=== PATIENT | male | born 1950 | race Caucasian/White ===

== ENCOUNTER 2018-09-08 09:19 | Observation (INO) | payer MEDICARE ==
[2018-09-08] MEDS ORDERED: Labetalol IV* 5 MG/ML 20 ML VIAL IV PUSH ONE (09:51)
[2018-09-08] MEDS ORDERED: Acetaminophen TAB* 325 MG PO ONE (09:51)
--- NOTE | 2018-09-08 09:51 | ED ---
Headache - HPI Summary HPI Summary: A 67 y/o male presents to [facility] with a chief complaint of headache since 16:00 09/07/18. The patient reports he was driving back home for three hours returning from [place] when he experienced headache followed by blurry vision. He rates his pain as a 3/10. He also reports jaw tightness on both sides with some SOB due to anxiety and upper back/shoulder blade pain lasting thirty minutes. The patient claims that his back and jaw pain along with his blurry vision have resolved. The patient denies any CP, arm pain, nausea or diaphoresis. The patient reports that he has a Hx of HTN and that his blood pressure is usually is 126/107 but in the ED his BP is 174/102. The patient's also reports that in July the patient had a syncopal episode in which his BP was 154/95. He reports that he took his BP medication TECHNICAL INTERN. The patient also has a Hx of DM, HLD and had a nerve palsy in his left eye. He reports a SHx of neck surgery in 1991. He denies having a stress test done, US of the heart done or a Hx of SD. He denies smoking, drug or EtOH use. - History Of Current Complaint Chief Complaint: EDHeadache Stated Complaint: BLURRED VISION, HEADACHE Time Seen by Provider: 09/08/18 09:33 Hx Obtained From: Patient Onset/Duration: Sudden Onset, Started hours ago, Still Present Initially Headache Was: Moderate Currently Pain Is: Current Pain Scale(0-10)= - 3, Moderate Timing: Constant, Hours Character: Unable To Describe Aggravating Factor: Nothing Allevating Factors: Nothing Associated Signs And Symptoms: Negative - nausea, diaphoresis, CP, arm pain, Visual Changes - blurry, Other (Noted In Comments) - upper back pain, SOB due to anxiety - Allergies/Home Medications Allergies/Adverse Reactions: Allergies Allergy/AdvReac Type Severity Reaction Status Date / Time Sulfa (Sulfonamide Allergy Nausea Verified 09/08/18 09:26 Antibiotics) PMH/Surg Hx/FS Hx/Imm Hx Endocrine/Hematology History: Reports: Hx Diabetes Denies: Hx Anticoagulant Therapy Cardiovascular History: Reports: Hx Hypercholesterolemia, Hx Hypertension Denies: Hx Myocardial Infarction Infectious Disease History: No Infectious Disease History: Denies: Traveled Outside the [place] in Last 30 Days - Family History Known Family History: Positive: Cardiac Disease, Hypertension, Diabetes - Social History Lives: With Family Alcohol Use: None Substance Use Type: Reports: None Hx Tobacco Use: No Smoking Status (MU): Never Smoked Tobacco Review of Systems Negative: Fever, Skin Diaphoresis Positive: Blurred Vision - TECHNICAL INTERN ENT: Other - positive: jaw pain on both sides TECHNICAL INTERN Negative: Chest Pain Positive: Shortness Of Breath - due to anxiety, TECHNICAL INTERN Negative: Nausea Musculoskeletal: Negative - arm pain Positive: Myalgia - upper back pain, shoulder blade pain Positive: Headache Positive: Anxious All Other Systems Reviewed And Are Negative: Yes Physical Exam - Summary Physical Exam Summary: GENERAL: Patient is a well-developed and nourished M who is lying comfortable in the stretcher. Patient is not in any acute respiratory distress. HEAD AND FACE: Normocephalic EYES: PERRLA, EOMI x 2. EARS: Hearing grossly intact. MOUTH: Oropharynx within normal limits. NECK: Supple, trachea is midline, no adenopathy, no JVD, no carotid bruit. CHEST: Symmetric, no tenderness at palpation LUNGS: Clear to auscultation bilaterally. No wheezing or crackles. CVS: Regular rate and rhythm, S1 and S2 present, no murmurs or gallops appreciated. ABDOMEN: Soft, non-tender. Bowel sounds are normal. No abdominal abnormal pulsations. EXTREMITIES: Full ROM in all major joints, no edema, no cyanosis or clubbing. NEURO: Alert and oriented x 3. No acute neurological deficits. Speech is normal and follows commands. SKIN: Dry and warm Neuro exam extended: Cranial nerves II-XII grossly intact, no dysmetria finger to nose, nml heel to wills GCS: 15 Triage Information Reviewed: Yes Vital Signs On Initial Exam: Initial Vitals Temp Pulse Resp BP Pulse Ox 98.0 F 95 20 174/102 98 09/08/18 09:22 09/08/18 09:22 09/08/18 09:22 09/08/18 09:22 09/08/18 09:22 Vital Signs Reviewed: Yes Diagnostics - Vital Signs Vital Signs Temp Pulse Resp BP Pulse Ox 09/08/18 09:22 98.0 F 95 20 174/102 98 - Laboratory Result Diagrams: 09/08/18 09:56 09/10/18 05:35 Lab Statement: Any lab studies that have been ordered have been reviewed, and results considered in the medical decision making process. - Radiology CXR Radiology Interpretation Completed By: Radiologist Summary of Radiographic Findings: NO ACTIVE CARDIOPULMONARY DISEASE. ED physician has reviewed this imaging report. - CT Brain CT Interpretation Completed By: Radiologist Summary of CT Findings: NO ACUTE INTRACRANIAL PATHOLOGY. CHRONIC SMALL VESSEL ISCHEMIC CHANGE. ED physician has reviewed this imaging report. - EKG 10:16 Cardiac Rate: NL - 89 bpm EKG Rhythm: Sinus Rhythm Summary of EKG Findings: NSR at 89 bpm, nml axis Re-Evaluation - Re-Evaluation First Eval Re-Evaluation Time: 10:50 Change: Improved Comment: Headache is improved but still present. Headache Course/Dx - Course Course Of Treatment: A 67 y/o male presents to [facility] with a chief complaint of headache since 16:00 09/07/18. Workup is remarkable with a normal physical exam. His EKG showed NSR at 89 bpm with nml axis. Brain CT impression: NO ACUTE INTRACRANIAL PATHOLOGY. CHRONIC SMALL VESSEL ISCHEMIC CHANGE. CXR impression: NO ACTIVE CARDIOPULMONARY DISEASE. In the ED course the patient was given Tylenol PO and Trandate IV. Lab results obtained. BUN high at 29. Creatinine high at 1.6. The patient will be admitted.Dx: atypical chest pain and headache. Case discussed with Dr. Thomas, hospitalist. I discussed results with patient. The patient agrees with this plan. - Diagnoses Provider Diagnoses: Atypical chest pain, Headache - Physician Notifications Discussed Care Of Patient With: Grady Thomas Time Discussed With Above Provider: 11:05 Instructed by Provider To: Admit As Inpatient Discharge - Sign-Out/Discharge Documenting (check all that apply): Patient Departure - Admit - Discharge Plan Condition: Stable Disposition: ADMITTED TO [facility] - Billing Disposition and Condition Condition: STABLE Disposition: Admitted to [facility] - Attestation Statements Document Initiated by Scribe: Yes Documenting Scribe: Charlie Mitchell Provider For Whom Carlibe is Documenting (Include Credential): Stevan Lake MD Scribe Attestation: Charlie Batista, scribed for Stevan Lake MD on 09/11/18 at 1038. Scribe Documentation Reviewed: Yes Provider Attestation: The documentation as recorded by the Charlie luu accurately reflects the service I personally performed and the decisions made by me, Shivani Lake MD Status of Scribe Document: Viewed
[2018-09-08 10:03] LABS: ABS Basophils 0.1 10^3/ul (0-0.2); ABS Eosinophils 0.1 10^3/ul (0-0.6); ABS Lymphocytes 0.7 10^3/ul (1.0-4.8); ABS Monocytes 0.6 10^3/ul (0-0.8); ABS Nucleated RBC 0 10^3/ul; Eosinophil % 1.8 %; Hematocrit 47 % (42-52); Lymphocyte % 12.7 %; Mean Corpuscular HGB Conc 34 g/dl (31-36); Mean Corpuscular Hemoglobin 31 pg (27-31); Mean Corpuscular Volume 90 fL (80-94); Nucleated Red Blood Cells % 0; Platelet Count 177 10^3/ul (150-450); Red Blood Count 5.24 10^6/ul (4.00-5.40); Red Cell Distribution Width 15 % (10.5-15); White Blood Count 5.5 10^3/ul (3.5-10.8)
[2018-09-08 10:10] LABS: Activated Partial Thrombo Time 31.6 seconds (26.0-36.3); INR 0.86 (0.77-1.02)
[2018-09-08] MEDS ORDERED: Metoprolol Tartrate TAB* 25 MG PO ONE (10:16)
[2018-09-08 10:25] LABS: Albumin 4.3 g/dL (3.2-5.2); Albumin/Globulin Ratio 1.5 (1-3); BUN/Creatinine Ratio 18.1 (8-20); Calcium 9.6 mg/dL (8.6-10.3); EGFR Non-African American 43.1 (>60); Globulin 2.8 g/dL (2-4); Magnesium 1.8 mg/dL (1.9-2.7); Total Bilirubin 0.4 mg/dL (0.2-1.0); Total Protein 7.1 g/dL (6.4-8.9)
[2018-09-08 10:28] LABS: Potassium 4.5 mmol/L (3.5-5.0)
[2018-09-08] MEDS ORDERED: Aspirin 81 mg CHEW TAB* 81 MG TAB.CHEW PO ONE (10:46)
[2018-09-08] MEDS ORDERED: Magnesium Sulfate 1 GM IV* 1 GM/100 ML BAG IV ONE (12:47)
--- NOTE | 2018-09-08 14:44 | ECHO ---
Patient: DANA FOWLER [facility] Rec#: [id number] : 1950 Date: 09/08/2018 Age: 67y Height: 163 cm / 64.2 in Weight: 81 kg / 178.5 lbs Sex: M BSA: 1.87 Room#: 438 Admit Date#: 09/08/2018 Type: Inpatient Referring: Grady Thomas Reading: Sabino Castrejon MD Library Sales Consultant: Charlotte Mendoza RDCS CC: Ruchi Sauer MD Transthoracic Echocardiogram Indication: CP//SOB BP: 146/95 HR: 91 Rhythm: NSR Findings History: DM,HLD,HTN. Technical Comments: The study quality is good. Completed at 1405. Left Ventricle: The left ventricular chamber size is normal. Global left ventricular wall motion and contractility are within normal limits. There is normal left ventricular systolic function. The estimated ejection fraction is 55-60%. The assessment of diastolic function is non-diagnostic. Left Atrium: The left atrial chamber size is normal. Right Ventricle: The right ventricular cavity size is normal. The right ventricular global systolic function is normal. Right Atrium: The right atrial cavity size is normal. Aortic Valve: The aortic valve structure is not well visualized. There is no evidence of aortic regurgitation. There is no evidence of aortic stenosis. Mitral Valve: The mitral valve leaflets are mildly thickened. There is no evidence of mitral regurgitation. Tricuspid Valve: The tricuspid valve leaflets are normal. There is no evidence of tricuspid valve regurgitation. Pulmonic Valve: The pulmonic valve appears normal. There is a trace pulmonic regurgitation. There is no pulmonic stenosis. Pericardium: There is no significant pericardial effusion. A pericardial fat pad is visualized. Aorta: There is no dilatation of the ascending aorta. There is no dilatation of the aortic arch. There is no dilation of the aortic root. Pulmonary Artery: The main pulmonary artery is not well visualized. Venous: The venous system is not well visualized. Conclusions There is normal left ventricular systolic function. The estimated ejection fraction is 55-60%. Global left ventricular wall motion and contractility are within normal limits. Normal cardiac chamber sizes. Functionally benign heart valves. There is no prior echocardiogram available to compare with at this time. Measurements Name Value Normal Range RVIDd (AP) 2D 3 cm (0.9 - 2.6) RVDdMajor (2D) 2.7 cm (2.2 - 4.4) RAd ISD 4CH 4.5 cm (3.4 - 4.9) RA (A4C)W 2.9 cm (2.9 - 4.6) IVSd (2D) 0.7 cm (0.6 - 1) LVPWd (2D) 0.8 cm (0.6 - 1) LVIDd (2D) 4.1 cm (3.6 - 5.4) LVIDs (2D) 3.1 cm - LV FS (2D) 24 % (25 - 45) Aortic Annulus 1.9 cm (1.4 - 2.6) Ao root diameter (2D) 3.1 cm (2.1 - 3.5) Ascending Ao 3.2 cm (2.1 - 3.4) Aortic arch 2.8 cm (1.8 - 3.4) Descending Ao 0.4 cm - LA dimension (AP) 2D 3.1 cm (2.3 - 3.8) LAd ISD 4CH 4 cm (2.9 - 5.3) LA ISD 4CH W 3.5 cm (2.5 - 4.5) Name Value Normal Range LA ESV SP 4CH (A/L) 15 ml - LA ESV SP 2CH (A/L) 12 ml - LA ESV BP (A/L) index 14 ml/m2 - Name Value Normal Range MV E-wave Vmax 0.6 m/sec - MV deceleration time 176 msec - MV A-wave Vmax 0.7 m/sec - MV E:A ratio 0.9 ratio - LV septal e' Vmax 0.08 m/sec - LV lateral e' Vmax 0.08 m/sec - LV E:e' septal ratio 7.5 ratio - LV E:e' lateral ratio 7.5 ratio - Name Value Normal Range AV Vmax 1.1 m/sec - AV VTI 21.3 cm - AV peak gradient 5 mmHg - AV mean gradient 2 mmHg - LVOT Vmax 0.9 m/sec - LVOT VTI 17 cm - LVOT peak gradient 3 mmHg - LVOT mean gradient 1 mmHg - Name Value Normal Range PV Vmax 0.6 m/sec - PV peak gradient 2 mmHg -
--- NOTE | 2018-09-08 17:14 | HP ---
HISTORY AND PHYSICAL: DATE OF ADMISSION: 09/08/18 ADMITTING PHYSICIAN: Grady Thomas MD PRIMARY CARE PHYSICIAN: Dr. Sauer. OUTPATIENT GROUND MIXER: Efren Gambino. CHIEF COMPLAINT: Pressure between bilateral shoulder blades, blurry vision, jaw tightness. HISTORY OF PRESENT ILLNESS: Pete Rehman is a 67-year-old male with a past medical history of hypertension; bvb-bpdewng-kbstdfdsm diabetes mellitus; hyperlipidemia; rheumatoid arthritis, on methotrexate and Plaquenil; gout; obstructive sleep apnea; chronic kidney disease stage 3; who day prior to admission drove to visit family in [place]. He noticed around 1 to 2 p.m. that his bilateral jaws felt tight with 7/10 intensity lasting for about 4 to 5 minutes. It has happened once before then resolved. This was before eating lunch. He had also noted some slight blurry vision on the drive that morning. On the way back home, he noticed worse blurry vision and had to harness puller and let his drive the rest of the way. He said though vision then certainly cleared once he got home. He woke up 4:30 a.m. with "odd" feeling with pressure between his bilateral shoulder blades, 7/10 intensity. He was able to go back to sleep and the pressure had not returned upon waking. He complains also of lower neck pain that radiates up to his occiput and upper back which is an intermittent issue for him. He does have history also in 2011 of third nerve palsy and at that time had severe double or blurry vision and was started on Plavix 75 mg in addition to aspirin 81 mg by his previous primary care provider, Dr. Mahoney. He denies any chest pain. He does get shortness of breath going upstairs on occasion and also sleeps at a slight incline, he says because of shortness of breath as well. He does not really exercise. Denies ever having an electrocardiogram. He is referred to hospitalist service for ACS rule out. His initial troponin was negative. EKG without significant changes except some flattening of T waves in V1 and poor R wave progression. He additionally because of the headache had a CT of the head, which showed chronic small vessel ischemic changes. Chest x-ray which showed no acute process. His last A1c was 6.0%, on 06/16/18. 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 MEDICATIONS: Include: 1. Aspirin 81. 2. Plavix 75. 3. Folic acid 1 mg. 4. Lispro 10 mg daily. 5. Omeprazole 20 mg daily. 6. Methotrexate 7.5 mg weekly, last had day prior to admission. 7. Metformin 500 mg p.o. daily. 8. Simvastatin 20 mg p.o. 1700. 9. Plaquenil 400 mg p.o. daily. ALLERGIES: SULFA causes nausea. FAMILY HISTORY: His mother had mitral valve disease and a CVA, at age 87. Dad had stomach cancer, at age 64. Both maternal and paternal grandfathers had bad diabetes. SOCIAL HISTORY: He is a never smoker. Former heavy drinker back in the 1970s when he quit, only occasionally now. No drug use. 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 His medical surrogate is his , Leydi Rehman. Desires to be full code. REVIEW OF SYSTEMS: Complete 14-point review of systems negative except as per HPI. PHYSICAL EXAMINATION GENERAL APPEARANCE: No acute distress, sitting in hospital bed. VITAL SIGNS: Temperature 98.6, heart rate 73, respiratory rate 21, sating 96% on room air, blood pressure 146/95. HEENT: Normocephalic and atraumatic. Pupils are equal, round, and reactive to light. Extraocular motions intact. No scleral icterus. NECK: Supple, no cervical lymphadenopathy. LUNGS: Clear to auscultation bilaterally with no wheezing, rales, or rhonchi. CARDIOVASCULAR: Regular rate and rhythm. No murmurs, rubs, or gallops. ABDOMEN: Soft, nontender, nondistended. EXTREMITIES: Warm, well perfused. No peripheral edema. NEUROLOGIC: Cranial nerves II through XII intact. Stabilizing Machine Operator strength 5/5. Hip flexion, leg extension 5/5 bilaterally. No blurry vision currently. DIAGNOSTIC STUDIES/LAB DATA: White count 5.5, hemoglobin 16.0, hematocrit 47, platelets 177. INR 0.86. Sodium 137, potassium 4.5, chloride 105, carbon dioxide 26, BUN 29, creatinine 1.60, glucose 100, magnesium 1.8. AST 23, ALT 26 , alk phos 50. Troponin 0.00, BNP 13. Imaging: CT head with the chronic small vessel ischemic changes. Chest x-ray, no acute process. EKG with normal sinus rhythm, flat T wave in V1, poor R wave progression, and some left axis deviation. ASSESSMENT AND PLAN: Pete Rehman is a 67-year-old male with a past medical history of hypertension, yre-cprwear-fycogboob diabetes, hyperlipidemia, rheumatoid arthritis, gout, obstructive sleep apnea, never smoker, presenting with pressure between his bilateral shoulder blades that is resolved, jaw tightness, blurry vision, and some chronic dyspnea on exertion, who is referred to hospitalist service for acute coronary syndrome rule out. His troponin was negative. EKG, no ST elevations or depressions. Trend troponins every 4 hours. Repeat EKG at 4 p.m. I am noting an echocardiogram, he has never had that before. Has possible TIA like symptoms in the past and blurry vision could potentially be related to that. Given his quick resolution, he is asymptomatic and may continue statin. He is already on aspirin and Plavix. We will determine clinical course and may consider nuclear stress test either tomorrow as an outpatient, so I gave him a heart healthy diet. Continue his Plaquenil with lisinopril, omeprazole. Again, he is a full code. Medical surrogate is his , Leydi Rehman. [id number]/[facility] #: [id number] IRON
[2018-09-08] MEDS: Clopidogrel TAB* 75 MG PO SCH (17:18)
[2018-09-08] MEDS: CMCS:Pantoprazole TAB (NF) 40 MG TAB PO SCH (17:18)
[2018-09-08] MEDS: Atorvastatin* 10 MG TAB PO SCH (17:18)
[2018-09-09 08:32] LABS: BUN/Creatinine Ratio 16.1 (8-20); Calcium 9.2 mg/dL (8.6-10.3); EGFR Non-African American 46.8 (>60); Magnesium 1.9 mg/dL (1.9-2.7); Potassium 4.4 mmol/L (3.5-5.0)
[2018-09-09] MEDS ORDERED: Regadenoson* 0.4 MG/5 ML SYRINGE ONE (09:32)
[2018-09-09] MEDS: Folic Acid TAB* 1 MG PO SCH (12:03)
[2018-09-09] MEDS: Lisinopril TAB* 10 MG PO SCH (12:03)
[2018-09-09] MEDS: metFORMIN* 500 MG TAB PO SCH (12:03)
[2018-09-09] MEDS: Aspirin EC TAB* 81 MG TAB.EC PO SCH (12:04)
[2018-09-09] MEDS: Hydroxychloroquine TAB* 200 MG PO SCH (12:04)
--- NOTE | 2018-09-09 15:19 | CONSULT ---
Consult Consult: NEUROLOGY CONSULTATION Patient seen and examined 09/09/2018 2.45pm CC:blurred vision HPI:This is a 67 yr old man with history of hypertension; fkl-fhuzzcb-ifwdutgkx diabetes mellitus; hyperlipidemia; rheumatoid arthritis, on methotrexate and Plaquenil; gout; obstructive sleep apnea; chronic kidney disease stage 3 presenting after a transient event of blurred vision. The patient was driving home from [place] with his when he noted bilateral jaw tightness that resolved after about 5 minutes. He then noted some blurred vision that persisted. He did not close one eye to test if this was from eye eye or both. He does not describe the change in vision as a curtain coming down, diplopia or an anopsia.He then let his drive the rest of the way. He also noted some posterior head/ neck pain 3/10 that he has occasionally experienced in the past. His vision cleared completely once he got home. He does have a history of a left 3rd nerve palsy that occured in 2011. He states that the workup was negative but was placed on ASA 81 and Plavix 75 daily after that event. He had a complete cardiac workup this admission that is thus far unrevealing. He denies any numbness, tingling, focal weakness, difficulty with speech, difficulty with balance or gait at the time of the event and now. Review of Systems: The patient's review of systems questionnaire was reviewed and there are no additional pertinent positives. 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 MEDICATIONS: Include: 1. Aspirin 81. 2. Plavix 75. 3. Folic acid 1 mg. 4. Lispro 10 mg daily. Allergies Sulfa (Sulfonamide Antibiotics) Allergy (Verified 09/08/18 09:26) Nausea FAMILY HISTORY: His mother had mitral valve disease and a CVA, at age 87. Dad had stomach cancer, at age 64. Both maternal and paternal grandfathers had bad diabetes. SOCIAL HISTORY: He is a never smoker. Former heavy drinker back in the 1970s when he quit, only occasionally now. No drug use. 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 His medical surrogate is his , Leydi Rehman. Desires to be full code. Vital Signs Temp 97.4 F 09/09/18 11:19 Pulse 81 12/28/18 11:19 Resp 16 09/09/18 11:19 BP 104/71 09/09/18 11:19 Pulse Ox 95 09/09/18 11:19 Intake & Output 09/08/18 09/09/18 09/09/18 18:59 06:59 18:59 Intake Total 615 0 Output Total 0 Balance 615 0 Weight 181 lb 8 oz Intake: IV Fluids 35 IVPB 100 Oral 480 0 Output: Urine 0 Exam: General: NAD, NCAT CVS/Resp: regular rate, breathing comfortably Mental Status: attentive/oriented/fluent CN: PERRLA, EOMI, V1=V2=V3, face symmetrical, hearing grossly intact, palate midline, SCM/trapezius strength intact bilaterally, tongue midline Motor: strength intact, normal tone/bulk, bilaterally in UE/LEs Sensory: grossly intact LT in arms, legs, and trunk Coord/ Gait: intact FFM/ FTN/ERIK in UE/LEs Reflexes: intact symmetrically in UE/LEs Laboratory: Laboratory Results WBC 5.5 10^3/ul (3.5-10.8) 09/08/18 09:56 RBC 5.24 10^6/ul (4.00-5.40) 09/08/18 09:56 Hgb 16.0 g/dl (14.0-18.0) 09/08/18 09:56 Hct 47 % (42-52) 09/08/18 09:56 MCV 90 fL (80-94) 09/08/18 09:56 MCH 31 pg (27-31) 09/08/18 09:56 MCHC 34 g/dl (31-36) 09/08/18 09:56 RDW 15 % (10.5-15) 09/08/18 09:56 Plt Count 177 10^3/ul (150-450) 09/08/18 09:56 MPV 9.0 fL (7.4-10.4) 09/08/18 09:56 Neut % (Auto) 73.0 % 09/08/18 09:56 Lymph % (Auto) 12.7 % 09/08/18 09:56 [place] % (Auto) 10.7 % 09/08/18 09:56 Eos % (Auto) 1.8 % 09/08/18 09:56 Baso % (Auto) 1.8 % 09/08/18 09:56 Absolute Neuts (auto) 4.0 10^3/ul (1.5-7.7) 09/08/18 09:56 Absolute Lymphs (auto) 0.7 10^3/ul (1.0-4.8) L 09/08/18 09:56 Absolute Monos (auto) 0.6 10^3/ul (0-0.8) 09/08/18 09:56 Absolute Eos (auto) 0.1 10^3/ul (0-0.6) 09/08/18 09:56 Absolute Basos (auto) 0.1 10^3/ul (0-0.2) 09/08/18 09:56 Absolute Nucleated RBC 0 10^3/ul 09/08/18 09:56 Nucleated RBC % 0 09/08/18 09:56 INR (Anticoag Therapy) 0.86 (0.77-1.02) 09/08/18 09:56 APTT 31.6 seconds (26.0-36.3) 09/08/18 09:56 Sodium 135 mmol/L (135-145) 09/09/18 08:11 Potassium 4.4 mmol/L (3.5-5.0) 09/09/18 08:11 Chloride 104 mmol/L (101-111) 09/09/18 08:11 Carbon Dioxide 25 mmol/L (22-32) 09/09/18 08:11 Anion Gap 6 mmol/L (2-11) 09/09/18 08:11 BUN 24 mg/dL (6-24) 09/09/18 08:11 Creatinine 1.49 mg/dL (0.67-1.17) H 09/09/18 08:11 Est GFR ( Amer) 56.6 (>60) 09/09/18 08:11 Est GFR (Non-Af Amer) 46.8 (>60) 09/09/18 08:11 BUN/Creatinine Ratio 16.1 (8-20) 09/09/18 08:11 Glucose 104 mg/dL (70-100) H 09/09/18 08:11 Lactic Acid 1.3 mmol/L (0.5-2.0) 09/08/18 09:56 Calcium 9.2 mg/dL (8.6-10.3) 09/09/18 08:11 Magnesium 1.9 mg/dL (1.9-2.7) 09/09/18 08:11 Total Bilirubin 0.40 mg/dL (0.2-1.0) 09/08/18 09:56 AST 23 U/L (13-39) 09/08/18 09:56 ALT 26 U/L (7-52) 09/08/18 09:56 Alkaline Phosphatase 50 U/L (34-104) 09/08/18 09:56 Troponin I 0.00 ng/mL (<0.04) 09/08/18 17:30 B-Natriuretic Peptide 13 pg/mL (<=100) 09/08/18 09:56 Total Protein 7.1 g/dL (6.4-8.9) 09/08/18 09:56 Albumin 4.3 g/dL (3.2-5.2) 09/08/18 09:56 Globulin 2.8 g/dL (2-4) 09/08/18 09:56 Albumin/Globulin Ratio 1.5 (1-3) 09/08/18 09:56 Imaging: All Neuroimaging reviewed personally by me as well as Neuroradiology HCT: IMPRESSION: NO ACUTE INTRACRANIAL PATHOLOGY. CHRONIC SMALL VESSEL ISCHEMIC CHANGE Assessment: 67 yr old man with htn, dm, ckd and hx of 3rd nerve palsy presenting with jaw tightness, transient blurred vision and mild posterior headache. Investigate for a TIA/ stroke. Recommendations: Obtain MRI of the brain Unable to obtain CTA due to CKD and high Cr Obtain Carotid Ultrasound Continue ASA 81 and Plavix 75 daily Thank you for including me in the care of this patient. Case discussed with treatment team. As per protocol, I discussed available results of testing and plan of care with the patient or advocate, who agrees to the plan. Face time for evaluation, education, counseling was >50% of time spent on unit: for 35 minutes.
[2018-09-09] MEDS: Atorvastatin* 10 MG TAB PO SCH (17:20)
[2018-09-09] MEDS: CMCS:Pantoprazole TAB (NF) 40 MG TAB PO SCH (17:20)
[2018-09-09] MEDS: Clopidogrel TAB* 75 MG PO SCH (17:20)
--- NOTE | 2018-09-09 19:06 | PN ---
Subjective Date of Service: 09/09/18 Interval History: Resting in bed with at bedside. Patient has been symptoms free since admission. No events on tele. Denies visual changes, dizziness, cp, sob, n/v/d, palpitations. Objective Active Medications: Aspirin (Aspirin Ec Tab*) 81 mg PO DAILY [facility] Last Admin: 09/09/18 12:04 Dose: 81 mg Atorvastatin Calcium (Lipitor*) 10 mg PO 1700 [facility] Last Admin: 09/09/18 17:20 Dose: 10 mg Clopidogrel Bisulfate (Plavix Tab*) 75 mg PO QPM [facility] Last Admin: 09/09/18 17:20 Dose: 75 mg Folic Acid (Folvite Tab*) 1 mg PO DAILY [facility] Last Admin: 09/09/18 12:03 Dose: 1 mg Hydroxychloroquine Sulfate (Plaquenil Tab*) 400 mg PO DAILY [facility] Last Admin: 09/09/18 12:04 Dose: 400 mg Lisinopril (Prinivil Tab*) 10 mg PO DAILY [facility] Last Admin: 09/09/18 12:03 Dose: 10 mg Metformin HCl (Glucophage*) 500 mg PO DAILY [facility] Last Admin: 09/09/18 12:03 Dose: 500 mg Pantoprazole Sodium (Protonix Tab (Nf)) 40 mg PO DAILY@1700 [facility] Last Admin: 09/09/18 17:20 Dose: 40 mg Vital Signs - 8 hr 09/09/18 09/09/18 11:19 15:19 Temperature 97.4 F 98.2 F Pulse Rate 81 82 Respiratory 16 18 Rate Blood Pressure 104/71 100/63 (mmHg) O2 Sat by Pulse 95 98 Oximetry Oxygen Devices in Use Now: None Appearance: Comfortable, NAD Eyes: PERRLA Ears/Nose/Mouth/Throat: Clear Oropharnyx, Mucous Membranes Moist Neck: NL Appearance and Movements; NL JVP Respiratory: Symmetrical Chest Expansion and Respiratory Effort, Clear to Auscultation Cardiovascular: NL Sounds; No Murmurs; No JVD, RRR, No Edema Abdominal: NL Sounds; No Tenderness; No Distention Lymphatic: No Cervical Adenopathy Extremities: No Edema Skin: No Rash or Ulcers Neurological: Alert and Oriented x 3, NL Sensation, NL Muscle Strength and Tone , - - Cranial nerves intact. No drift. Coordination intact. 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 - Patient Problems (1) Shoulder blade pain Comment: - Has resolved since admission and has not returned. - Did not have symptoms during exercise stress test. Reports he was able to perform treadmill test without difficulty. Stress test was low risk - Echo normal - Trops negative (2) Jaw pain Comment: - Resolved prior to admission and has not returned (3) Blurred vision Comment: - Resolved and has not returned. - Should be noted that blurred vision did last several hours - Due to constilation of symptoms and patient reports he has had intermittent episodes like the one that prompted his ED visit, I have requested a consult from neuro. - In addition, an MRI of the brain and doppler of carotids was completed. - MRI revealed chronic small vessel ischemic change progressive from previous. - Carotid revealed right 70 to 90% stenosis and left 50 to 69% - CTA would be benefical for further eval, but patient has CKD. Therefore, I will discuss with neuro (4) HTN (hypertension) Comment: - Cont Lisinopril (5) HLD (hyperlipidemia) Comment: - Cont statin (6) CKD (chronic kidney disease) Comment: - Creatinine at baseline - Cont to monitor (7) Third nerve palsy Comment: - On Plavis - Cont as same (8) TIA (transient ischemic attack) Comment: - On Plavis. - Per patient 3rd nerve palsey was attributed to possible TIA (9) DVT prophylaxis Comment: - Per Risk Assessment patient is high risk therefore has been placed on Sub Q Heparin Status and Disposition: Inpatient. Discharge home when medically stable. Attending: Grady Thomas
[2018-09-09] MEDS: Heparin VIAL(*) 5000 UNITS/ML VIAL (FIVE THOUSAND) SUBCUT SCH (20:29)
[2018-09-10] MEDS: Heparin VIAL(*) 5000 UNITS/ML VIAL (FIVE THOUSAND) SUBCUT SCH (06:03)
[2018-09-10 06:19] LABS: Calcium 9.4 mg/dL (8.6-10.3); Magnesium 1.9 mg/dL (1.9-2.7)
[2018-09-10 06:24] LABS: BUN/Creatinine Ratio 17.4 (8-20); EGFR Non-African American 46.8 (>60)
[2018-09-10 06:33] LABS: Potassium 4.3 mmol/L (3.5-5.0)
[2018-09-10] MEDS: Aspirin EC TAB* 81 MG TAB.EC PO SCH (08:02)
[2018-09-10] MEDS: Hydroxychloroquine TAB* 200 MG PO SCH (08:02)
[2018-09-10] MEDS: metFORMIN* 500 MG TAB PO SCH (08:02)
[2018-09-10] MEDS: Folic Acid TAB* 1 MG PO SCH (08:02)
[2018-09-10] MEDS: Lisinopril TAB* 10 MG PO SCH (08:52)
[2018-09-10 12:00] LABS: HDL Cholesterol 38.9 mg/dL
[2018-09-10 16:38] VITALS: BP 121/73
--- NOTE | 2018-09-11 01:07 | PN ---
NEUROLOGICAL FOLLOWUP: DATE OF SERVICE: 09/10/18. PATIENT OF: Efren Gambino NP and Dr. Sauer. HOSPITALIST: Dr. Grayson. HISTORY: I have obtained further history. notes that since May roughly the same. He has had episodes on almost a weekly basis of confusion and speech problems lasting less than half an hour. He has also in May had 2 episodes of passing out, but without focal neurological details. Rest of the history is outlined in the chart by Dr. Borges and others including his bilateral visual symptoms on Wednesday and 2 prior episodes, one in 2012 and more recently in 2014. The 2015 episode was where he had also alteration of vision. MEDICATIONS: Include: 1. Aspirin. 2. Plavix. 3. Lipitor 10 mg, but he came in on Plaquenil 400 mg daily. 4. Prinivil 10 mg daily. 5. Metformin 500 mg daily. 6. Protonix 40 mg daily. PHYSICAL EXAMINATION: On exam: Temperature 97.9, pulse 73, respirations 20, blood pressure 100/67. He is alert and oriented with normal speech and comprehension. Cranial nerves II through XII are intact. Motor exam revealed normal tone and strength, coordination, and gait. Sensation intact to light touch. Chest clear. Cardiovascular is regular rate and rhythm. Abdomen is soft with positive bowel sounds. DIAGNOSTIC STUDIES/LAB DATA: I reviewed his MRI scan, which showed diffuse white matter disease in his clinical situation, most likely secondary to small vessel ischemic disease, but no acute stroke is noted. His carotid Doppler showed 70% to 90% right carotid stenosis and 50% to 69% left carotid stenosis. His BUN is 26, creatinine 1.49, LDL was 93. CBC was benign. IMPRESSION AND PLAN: I discussed in detail with the patient that the concern is whether he is having symptoms related to his carotid disease. His almost weekly word-finding difficulties and confusion could be secondary to his right carotid disease. He is left handed. Of note, he should have a consult with vascular surgeon and be on dual platelet therapy and have an increase in his statin to get his LDL below 70. I also recommended a liberalized blood pressure control at least until he sees the vascular surgeon and would tolerate blood pressures 130/80. At this point, I will be contacting Dr. Cárdenas on Wednesday and discussing the case as soon as possible and deciding how soon he should see the patient and also what the best studies are for followup. I will discuss issues with the family and Dr. Grayson in detail. Thank you for sharing his case. [id number]/[facility] #: [id number] IRON
--- NOTE | 2018-09-11 05:37 | DS ---
Amended report to enter cosigning physician. CC: Dr. Sauer; Dr. Pierre; Dr. Cárdenas* DISCHARGE SUMMARY: DATE OF ADMISSION: 09/08/18 DATE OF DISCHARGE: 09/10/18 PRIMARY CARE PROVIDER: Dr. Sauer. CONSULTING PHYSICIANS: Dr. Pierre; Dr. Cárdenas, Neurosurgery. ATTENDING PHYSICIAN: Dr. Mccarthy* (dictated by Norma Granados NP). PRIMARY DIAGNOSES: 1. Pressure between shoulder blades. 2. Blurry vision. 3. Jaw tightness. SECONDARY DIAGNOSIS: 1. Hypertension. 2. Non-insulin dependent diabetes. 3. Hyperlipidemia. 4. Rheumatoid arthritis. 5. Gout. 6. Sleep apnea. 7. 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 Chronic kidney disease stage 3. CONSULTATIONS WHILE IN THE HOSPITAL: Neurology, Dr. Pierre. PROCEDURES WHILE IN THE HOSPITAL: No procedures. STUDIES WHILE IN THE HOSPITAL: 1. Chest x-ray: Impression: No active cardiopulmonary disease. 2. EKG: Impression: Sinus rhythm. 3. Brain CT: Impression: No acute intracranial pathology. Chronic small vessel ischemic change. 4. Transthoracic echocardiogram: Impression: There is normal left ventricular systolic function. The estimated ejection fraction is 55% to 60%. The global left ventricular wall motion and contractility are within normal limits. Normal cardiac chamber sizes. Functionally benign heart valves. There is no prior echocardiogram available to compare. 5. Nuclear med scan: Impression: There is no evidence for stress-induced myocardial ischemia or presence of an infarct. Normal left ventricular wall motion and ejection fraction. 6. Brain MRI: Impression: Chronic small vessel ischemic change, progressed from the previous examination done on 01/18/12. Moderate sinus mucosa inflammatory disease with air-fluid level in the right maxillary sinus. Bilateral mastoid effusion. No restricted diffusion to suggest acute infarct. 7. Carotid Doppler study: Impression: Low end of 70% to 90% range right internal carotid artery stenosis. Upper end of 50 to 69 range left internal carotid artery stenosis. DISCHARGE HOME MEDICATIONS: New home medications: Lipitor 80 mg p.o. daily. Continued home medications: 1. Aspirin 81 mg p.o. daily. 2. Plavix 75 p.o. daily. 3. Folic acid 1 mg p.o. daily. 4. Omeprazole 20 mg p.o. daily. 5. Methotrexate 7.5 mg weekly. 6. Metformin 500 mg p.o. daily. 7. Plaquenil 400 mg p.o. daily. Discontinued home medications: 1. Simvastatin 200 mg p.o. This has been changed to Lipitor 80 mg p.o. 2. Lisinopril 10 mg p.o. daily. The patient has been encouraged to hold this medication, monitor blood pressure, and maintain blood pressure between 130 and 180 systolically. HISTORY OF PRESENT ILLNESS/HOSPITAL COURSE: Mr. Rehman is a 67-year-old male with a past medical history significant for hypertension, diabetes, hyperlipidemia, SHAWN, third nerve palsy secondary to TIA, and chronic kidney disease, who presented to the ED on 09/08/18 with complaints of pressure between shoulder blades, blurry vision, and jaw tightness. Please see the history and physical dictated by Dr. Grady Thomas for complete summary of events leading up to the hospitalization, but in short, the day before presenting himself to the ED, he reports he had a short episode of bilateral jaw tightness. Later that day, he also started to notice blurry vision on his drive home that lasted approximately 6 hours. He woke that night with an odd pressure between his bilateral shoulder blades. When he woke the next morning, he was having lower neck pain that radiated up to the occipital and upper back, which is an intermittent issue for him. Therefore, he presented himself to the emergency department. While in the emergency department, the patient had a CT, chest x-ray, and EKG as mentioned above. He also had labs that were unremarkable, including initial troponin, which was unremarkable. Due to the patient's history and concerning presentation, the patient was admitted to Telemetry. While on telemetry, the patient had serial troponins, which were 0.00. In addition, he had EKGs, which were unremarkable. In addition, he remained on telemetry, which showed sinus rhythm. As mentioned above, he underwent a nuclear stress test, which revealed low risk. The patient remained asymptomatic during his hospital stay. After ACS was ruled out, the patient underwent an MRI and carotid Doppler, as mentioned above, due to history of TIA and third nerve palsy, in addition to description of blurred vision. It should be mentioned that the patient also reports his blurred vision has happened previously. After studies were obtained, consultation was requested from Neurology and we very much appreciate their input. After evaluation by Dr. Pierre, it was also revealed that the patient has had occasional word finding difficulties over the past month. The patient is also left handed. With the combination of reported symptoms, carotid Doppler study results, MRI results, and left handedness, Dr. Pierre will be coordinating a followup with Dr. Cárdenas , who is a neurosurgeon, for further evaluation of carotid stenosis and possibly intervention. Ms. Rehman is stable for discharge to home. His vital signs were temperature 97.2, HR 77, RR 16, O2 sat 97% on room air, BP 121/73. REVIEW OF SYSTEMS: A 14-point review of systems was completed and all were negative. PHYSICAL EXAMINATION: General: Mr. Rehman is a well-developed, well nourished white man, sitting in bed, in no acute distress. Appears stated age. Family is at the bedside. HEENT: PERRLA. EOMs intact. Oral mucosa is moist without lesions. Tonsils without erythema or exudate. Pharynx is clear. Neck: Full range of motion. Supple. Respiratory: Symmetrical chest expansion. Lung are clear to auscultation. No rhonchi, wheezes or rubs. CV: Regular rate and rhythm. S1/S2 present. No murmurs, rubs or gallops. Extremities: Skin is warm and smooth bilaterally. No edema. No clubbing or cyanosis. Pedal pulses 2+ bilaterally. Musculoskeletal: Full range of motion. No pain or deformities. Abdomen: Soft, nontender to palpation. Bowel sounds x4. Neuro: Awake, alert, and oriented x4. Cranial nerves II through XII intact. Moves all extremities. Motor strength is 5/5 in upper and lower extremities bilaterally. Steady gait with no impairments. Coordination intact with finger- to- nose test. No drift. Skin: Grossly intact without lesions. LABORATORY DATA: Labs obtained on 09/09/18, sodium 135, potassium 4.4, chloride 104, carbon dioxide 25, BUN 24, creatinine 1.49. WBC 5.5, hemoglobin 16, hematocrit 47, platelets 177. DISCHARGE PLAN/FOLLOWUP: 1. Blurred vision/carotid stenosis: I have discussed signs and symptoms of worsening condition at length with the patient and encouraged to call 911. As mentioned above, Dr. Pierre will be coordinating the patient's followup with Dr. Cárdenas, who is a neurosurgeon. Per Dr. Pierre, he has provided the patient with his cellphone to further coordinate these appointments. In addition, the patient will follow up with Dr. Pierre. 2. Hyperlipidemia: Due to our concern for transient ischemic attack, the patient's simvastatin has been discontinued and instead he has been placed on Lipitor 80 mg p.o. daily. I have educated the patient on this medication and encouraged him to follow up with his primary care provider for a repeat labs in one month, which I have ordered for him to obtain here at [facility]. 3. Hypertension: Per Dr. Pierre's instruction, the patient is to maintain a systolic blood pressure between 130 and 180. I have encouraged the patient to hold his lisinopril and monitor blood pressure daily. He plans to record these blood pressures and bring them to follow up appointments. The patient understands holding his blood pressure medications to maintain this goal. I have encouraged the patient if he consistently has elevated blood pressure readings above [address] Pierre or his primary care provider. 4. Non-insulin dependent diabetes: The patient may continue metformin as previously prescribed. 5. Rheumatoid arthritis: The patient may continue medications as previously prescribed. 6. Obstructive sleep apnea: We discussed importance of treating his obstructive sleep apnea. The patient has a CPAP and uses it religiously. 7. Third nerve palsy/2012, secondary to possible transient ischemic attack: The patient is to continue Plavix and aspirin at previously prescribed dose. 8. Chronic kidney disease, stage 3: The patient's creatinine is at his baseline currently. This is a summarized report of complex medical history and hospital stay. For further details, please see the entire medical record. I have discussed this plan with my attending, Dr. Mccarthy, who agrees with my plan. TIME SPENT: Approximately 60 minutes were spent on this discharge, greater than half that time was spent [id number] with the patient, discussing my discharge plans and instructions. NORMA GRANADOS, RAUL [id number]/[facility] #: [id number] IRON
== END 2018-09-10 18:15 | disposition home or self-care (01) ==
LOC: ED 09:19 → MEDTELE 11:45
PROVIDERS: ADMIT Internal Medicine; ATTEND Student in an Organized Health Care Education/Training Program
DX: M54.9 Dorsalgia, unspecified (principal); H53.8 Other visual disturbances; R68.84 Jaw pain; I10 Essential (primary) hypertension; E11.9 Type 2 diabetes mellitus without complications; E78.5 Hyperlipidemia, unspecified; M06.9 Rheumatoid arthritis, unspecified; M10.9 Gout, unspecified; G47.30 Sleep apnea, unspecified; H49.00 Third [oculomotor] nerve palsy, unspecified eye; N18.3 Chronic kidney disease, stage 3 (moderate); Z79.82 Long term (current) use of aspirin
CPT/HCPCS: 36415; 70450; 70551; 71045; 78452; 80048; 80053; 80061; 83605; 83735; 83880; 84484; 85025; 85610; 85730; 93005; 93017; 93306; 93880; 96365; 96372; 96375; 99284; A9270-GY; A9502; G0378; J1644; J2785; J3475

== ENCOUNTER 2018-09-13 10:59 | Emergency (ER) | payer MEDICARE ==
--- NOTE | 2018-09-13 11:39 | ED ---
Neurological HPI - HPI Summary HPI Summary: This patient is a 67 year old M brought in by ambulance accompanied by two women with a chief complaint of heaviness and tightness in bilateral legs since 06:30 this morning. He first experienced these symptoms while sitting at his computer. At the time of the exam, his legs still feel a little tight but his legs have improved. Patient reports blurry vision and WATTS. The patient states that he is used to having some blurry vision in the morning. He is supposed to get bloodwork tomorrow before seeing a vascular surgeon for plague buildup in his bilateral carotids. He recently went from 10mg to 80mg for cholesterol medication, which he says can cause tightness in the legs. The patient was recently discharged for the same symptoms. - History of Current Complaint Chief Complaint: EDGeneral Stated Complaint: CONFUSION Time Seen by Provider: 09/13/18 11:17 Hx Obtained From: Patient Onset/Duration: Sudden Onset Onset Severity: Moderate Current Severity: Mild Pain Intensity: 0 Associated Signs and Symptoms: Positive: Visual Changes, Headache - Additional Pertinent History Primary Care Physician: DAVID - Allergy/Home Medications Allergies/Adverse Reactions: Allergies Allergy/AdvReac Type Severity Reaction Status Date / Time Sulfa (Sulfonamide Allergy Nausea Verified 09/13/18 11:05 Antibiotics) Home Medications: Home Medications Atorvastatin* [Lipitor*] 80 mg PO DAILY 09/13/18 [History Confirmed 09/13/18] Gabapentin CAP(*) [Neurontin 100 mg CAP(*)] 100 mg PO DAILY 09/13/18 [History Confirmed 09/13/18] PMH/Surg Hx/FS Hx/Imm Hx Endocrine/Hematology History: Reports: Hx Diabetes Denies: Hx Anticoagulant Therapy Cardiovascular History: Reports: Hx Angina, Hx Hypercholesterolemia, Hx Hypertension Denies: Hx Myocardial Infarction, Hx Pacemaker/ICD Respiratory History: Denies: Hx Asthma, Hx Chronic Obstructive Pulmonary Disease (COPD) Musculoskeletal History: Reports: Hx Arthritis - RA Sensory History: Reports: Hx Contacts or Glasses Denies: Hx Hearing Aid Opthamlomology History: Reports: Hx Contacts or Glasses Psychiatric History: Denies: Hx Panic Disorder - Surgical History Surgery Procedure, Year, and Place: NECK SURGERY 1991 - Immunization History Date of Tetanus Vaccine: UTD Date of Influenza Vaccine: NO Infectious Disease History: No Infectious Disease History: Denies: Traveled Outside the [place] in Last 30 Days - Family History Known Family History: Positive: Cardiac Disease, Hypertension, Diabetes - Social History Alcohol Use: None Substance Use Type: Reports: None Hx Tobacco Use: No Smoking Status (MU): Never Smoked Tobacco Review of Systems Positive: Blurred Vision Positive: Decreased ROM - legs Neurological: Other - tightness and heaviness in legs Positive: Headache All Other Systems Reviewed And Are Negative: Yes Physical Exam - Summary Physical Exam Summary: Appearance: The patient is well-nourished in no acute distress and in no acute pain. Skin: The skin is warm and dry and skin color reflects adequate perfusion. HEENT: The head is normocephalic and atraumatic. The pupils are equal and reactive. The conjunctivae are clear and without drainage. Nares are patent and without drainage. Mouth reveals moist mucous membranes and the throat is without erythema and exudate. The external ears are intact. The ear canals are patent and without drainage. The tympanic membranes are intact. Neck: The neck is supple with full range of motion and non-tender. There are no carotid bruits. There is no neck vein distension. Respiratory: Chest is non-tender. Lungs are clear to auscultation and breath sounds are symmetrical and equal. Cardiovascular: Heart is regular rate and rhythm. There is no murmur or rub auscultated. There is no peripheral edema and pulses are symmetrical and equal. Abdomen: The abdomen is soft and non-tender. There are normal bowel sounds heard in all four quadrants and there is no organomegaly palpated. Musculoskeletal: There is no back tenderness noted. Extremities are non-tender with full range of motion. There is good capillary refill. There is no peripheral edema or calf tenderness elicited. Neurological: Patient is alert and oriented to person, place and time. The patient has symmetrical motor strength in all four extremities. Cranial nerves are grossly intact. Deep tendon reflexes are symmetrical and equal in all four extremities. Psychiatric: The patient has an appropriate affect and does not exhibit any anxiety or depression. NIH: 0 Triage Information Reviewed: Yes Vital Signs On Initial Exam: Initial Vitals Temp Pulse Resp BP Pulse Ox 98.3 F 86 25 156/99 94 09/13/18 11:06 09/13/18 11:06 09/13/18 11:06 09/13/18 11:06 09/13/18 11:06 Vital Signs Reviewed: Yes Diagnostics - Vital Signs Vital Signs Temp Pulse Resp BP Pulse Ox 09/13/18 11:12 88 16 95 09/13/18 11:06 98.3 F 86 25 156/99 94 - Laboratory Lab Statement: Any lab studies that have been ordered have been reviewed, and results considered in the medical decision making process. NIH Scale - NIH Scale Level of Consciousness: Alert/Keenly Responsive Ask Patient the Month and His/Her Age: Both Correct Ask Pt to Open/Close Eyes and Setter Machine/Release Non-Paretic Hand: Both Correctly Best Gaze (Only Horizontal Eye Movement): Normal Visual Field Testing: No Visual Loss Facial Paresis-Pt to Smile & Close Eyes or Grimace Symmetry: Normal/Symmetrical Motor Function - Right Arm: No Drift-Holds 10 Seconds Motor Function - Left Arm: No Drift-Holds 10 Seconds Motor Function - Right Leg: No Drift-Holds 10 Seconds Motor Function - Left Leg: No Drift-Holds 10 Seconds Limb Ataxia-Must be out of Proportion to Weakness Present: Absent Sensory (Use Pinprick to Test Arms/Legs/Trunk/Face): Normal Best Language (Describe Picture, Name Items): No Aphasia Dysarthria (Read Several Words): Normal Extinction and Inattention: No Abnormality Total Score: 0 Course/Dx - Course Course Of Treatment: Mr. Rehman minimizes his story quite a bit when I speak with them. He tells me that he got up this morning at his normal time and when he was sitting at the computer his eyes, little bit blurry. He states this is not unusual for him when he sits at the computer. He states he had a mild headache also but that's also not unusual for him. When questioned as to what brought him in he's states that he had some pressure and heavy feeling in his bilateral anterior thighs and this is what concerned him. He also minimizes that stating that he was warned that he may have some muscle aches because he was started on Lipitor during his recent hospitalization. He was nontoxic in appearance and his vital signs are stable when I saw him. An NIH stroke scale was 0. I spoke with Dr. Faustin contact officer for Dr. Pierre as the patient has had a very thorough workup and is getting set to be referred to [facility] for carotid endarterectomies. Dr. Faustin agreed that there was no indication to repeat a lot of tests at this time but rather to encourage follow-up and Dr. Faustin will arrange that tomorrow morning when his office opens. I'm not sure if he had a TIA again today were more likely the Lipitor is causing some musculoskeletal pain. - Differential Dx Differential Diagnoses Neuro: Positive: Transient Ischemic Attack - Diagnoses Provider Diagnoses: TIA (transient ischemic attack) Discharge - Sign-Out/Discharge Documenting (check all that apply): Patient Departure - discharge - Discharge Plan Condition: Stable Disposition: HOME Patient Education Materials: Transient Ischemic Attack (ED) Referrals: Gustavo Pierre MD [Medical Doctor] - 1 Day Additional Instructions: Follow up with Dr. Pierre tomorrow. Return to the emergency department for new or worsening symptoms. - Billing Disposition and Condition Condition: STABLE Disposition: Home - Attestation Statements Document Initiated by Eddi: Yes Documenting Scribe: Bony Nye Provider For Whom Vone is Documenting (Include Credential): Randall Alanis MD Scribe Attestation: Bony Batista, scribed for Randall Alanis MD on 09/13/18 at 1602. Scribe Documentation Reviewed: Yes Provider Attestation: The documentation as recorded by the Bony luu accurately reflects the service I personally performed and the decisions made by me, Randall Alanis MD Status of Scribe Document: Viewed
[2018-09-13 12:13] VITALS: BP 143/98
== END 2018-09-13 12:20 | disposition home or self-care (01) ==
LOC: ED 10:59
DX: G45.9 Transient cerebral ischemic attack, unspecified (principal); Z88.2 Allergy status to sulfonamides; E11.9 Type 2 diabetes mellitus without complications; E78.00 Pure hypercholesterolemia, unspecified; I10 Essential (primary) hypertension; M06.9 Rheumatoid arthritis, unspecified
CPT/HCPCS: 99282

== ENCOUNTER → 2018-11-19 15:03 | Emergency (ER) | payer MEDICARE ==
[~2018-11-19 15:03] MED LIST: Insulin REGULAR(*) 1 UNITS UNIT IV PUSH ONE; Magnesium Oxide TAB* 400 MG PO ONE; NS 0.9% 1000 ML** 1,000 ML IV ONE
--- NOTE | 2018-11-19 15:25 | ED ---
Complex/Multi-Sys Presentation - HPI Summary HPI Summary: This patient is a 67 year old M presenting to ED with a chief complaint of light -headedness, shakiness, diaphoresis, and nausea while sitting in the car around 1400 today. The patient was burning brush outside this morning. He then sat in a chair and dozed off like normal. His told him he was in deeper sleep than normal. He then got up and didnt feel quite right. He was on his way to [place] afterwards and didnt feel well and decided to head back and come to the ED. The patient rates the pain 0/10 in severity. Symptoms aggravated by nothing. Symptoms alleviated by nothing. Patient reports dizziness, near-syncope , and generalized weakness. Patient denies vomiting. He had seen Dr. Pierre with similar sx and they said his arteries were plugged (70-90%). He says Dr. Pierre again in [address] Sauer is his PCP. Dr. Cárdenas in [place] didn t want to operate on the patient. - History Of Current Complaint Chief Complaint: EDDizziness Time Seen by Provider: 11/19/18 15:12 Hx Obtained From: Patient Onset/Duration: Sudden Onset, Lasting Hours - since 1400, Still Present Timing: Constant, Hours Severity Currently: None Aggravating Factor(s): nothing Alleviating Factor(s): nothing Associated Signs And Symptoms: Positive: Dizziness, Weakness, Nausea, Diaphoresis. Negative: Vomiting - Allergies/Home Medications Allergies/Adverse Reactions: Allergies Allergy/AdvReac Type Severity Reaction Status Date / Time Sulfa (Sulfonamide Allergy Nausea Verified 11/19/18 15:07 Antibiotics) Home Medications: Home Medications Cholecalciferol TAB* [Vitamin D TAB*] 1,000 unit PO DAILY 11/19/18 [History Confirmed 11/19/18] Escitalopram * [Lexapro 5 mg (NF)] 5 mg PO BEDTIME 11/19/18 [History Confirmed 11/19/18] PMH/Surg Hx/FS Hx/Imm Hx Endocrine/Hematology History: Reports: Hx Diabetes Denies: Hx Anticoagulant Therapy Cardiovascular History: Reports: Hx Angina, Hx Hypercholesterolemia, Hx Hypertension Denies: Hx Myocardial Infarction, Hx Pacemaker/ICD Respiratory History: Denies: Hx Asthma, Hx Chronic Obstructive Pulmonary Disease (COPD) History: Reports: Hx Renal Disease - abnormal gfr Denies: Hx Dialysis Musculoskeletal History: Reports: Hx Arthritis - RA Sensory History: Reports: Hx Contacts or Glasses Denies: Hx Hearing Aid Opthamlomology History: Reports: Hx Contacts or Glasses Psychiatric History: Denies: Hx Panic Disorder - Surgical History Surgery Procedure, Year, and Place: fusion cspine 1991 - Immunization History Date of Tetanus Vaccine: UTD Date of Influenza Vaccine: NO Infectious Disease History: No Infectious Disease History: Denies: Traveled Outside the [place] in Last 30 Days - Family History Known Family History: Positive: Cardiac Disease, Hypertension, Diabetes - Social History Alcohol Use: None Substance Use Type: Reports: None Hx Tobacco Use: No Smoking Status (MU): Never Smoked Tobacco Review of Systems Positive: Skin Diaphoresis Positive: Nausea. Negative: Vomiting Neurological: Other - light-headedness, shakiness, dizziness, near-syncope Positive: Weakness All Other Systems Reviewed And Are Negative: Yes Physical Exam - Summary Physical Exam Summary: VITAL SIGNS: Reviewed. GENERAL: Patient is a well-developed and nourished MALE who is lying comfortable in the stretcher.Patient is not in any acute respiratory distress. HEAD AND FACE: No signs of trauma. No ecchymosis, hematomas or skull depressions. No sinus tenderness. EYES: PERRLA, EOMI x 2, No injected conjunctiva, no nystagmus. No photophobia. EARS: Hearing grossly intact. Ear canals and tympanic membranes are within normal limits. MOUTH: Oropharynx within normal limits. NECK: Supple, trachea is midline, no adenopathy, no JVD, no carotid bruit, no c- spine tenderness, neck with full ROM. No meningeal signs, no Kernig's or brudzinskis signs. CHEST: Symmetric, no tenderness at palpation LUNGS: Clear to auscultation bilaterally. No wheezing or crackles. CVS: Regular rate and rhythm, S1 and S2 present, no murmurs or gallops appreciated. ABDOMEN: Soft, non-tender. No signs of distention. No rebound no guarding, and no masses palpated. Bowel sounds are normal. EXTREMITIES: FROM in all major joints, no edema, no cyanosis or clubbing. NEURO: Alert and oriented x 3. No acute neurological deficits. Speech is normal and follows commands. SKIN: Dry and warm GCS: 15 Triage Information Reviewed: Yes Vital Signs On Initial Exam: Initial Vitals Temp Pulse Resp BP Pulse Ox 97.9 F 99 18 195/97 99 11/19/18 15:04 11/19/18 15:04 11/19/18 15:04 11/19/18 15:04 11/19/18 15:04 Vital Signs Reviewed: Yes Diagnostics - Vital Signs Vital Signs Temp Pulse Resp BP Pulse Ox 11/19/18 15:04 97.9 F 99 18 195/97 99 - Laboratory Result Diagrams: 11/19/18 15:39 11/19/18 15:39 Lab Statement: Any lab studies that have been ordered have been reviewed, and results considered in the medical decision making process. - Radiology CXR Radiology Interpretation Completed By: Radiologist Summary of Radiographic Findings: No evidence for acute intrathoracic disease. Dr. Washington has reviewed this radiology report. - CT Brain CT CT Interpretation Completed By: Radiologist Summary of CT Findings: Stigmata of chronic small vessel ischemic disease without change. No CT evidence for acute intracranial process. Dr. Washington has reviewed this radiology report. - EKG 1513 Cardiac Rate: NL - 87 BPM EKG Rhythm: Sinus Rhythm Summary of EKG Findings: No ST elevations Re-Evaluation - Re-Evaluation First Eval Re-Evaluation Time: 17:56 Comment: Discussed results with the patient and plan for discharge. Patient understands and agrees with this plan. Complex Multi-Symp Course/Dx Assessment/Plan: Patient is a 47-year-old male who presents to the emergency department with chief complaint of having dizziness. The patient had nausea and diaphoretic. Blood work without any significant abnormality except for the creatinine 1.55 which is his baseline., Glucose 126 and total kinase is 258. In the ED the patient was able hydration and after these medications the symptoms have resolved. At this point I discussed all the findings and test results with the patient. He was instructed to return to the emergency room immediately if any of the symptoms return or worsens. They understand and agree. Neurological exam before discharge: Patient is alert and oriented x 3. No acute neurological deficits. Patient vital signs are stable. Patient is to follow up with CPP in the next 2 3 days. They understand and agree. Plan of care was discussed with the patient and patient understands and agrees with the plan of care. All questions were answered at patient satisfaction. There were no further complaints or concerns. - Diagnoses Differential Diagnoses/HQI/PQRI: Other - hyperglycemia, dizziness Provider Diagnoses: Dizziness Discharge - Sign-Out/Discharge Documenting (check all that apply): Patient Departure - discharge Patient Received Moderate/Deep Sedation with Procedure: No - Discharge Plan Condition: Stable Disposition: HOME Patient Education Materials: Dizziness (ED), Diabetic Hyperglycemia (ED) Referrals: Ruchi Sauer MD [Primary Care Provider] - 3 Days Additional Instructions: RETURN TO THE ED FOR ANY WORSENING OR NEW SYMPTOMS. - Billing Disposition and Condition Condition: STABLE Disposition: Home - Attestation Statements Document Initiated by Carlibe: Yes Documenting Scribe: Duncan Chacko Provider For Whom Eddi is Documenting (Include Credential): Davon Washington MD Scribe Attestation: Duncan Batista, scribed for Davon Washington MD on 11/19/18 at 1851. Scribe Documentation Reviewed: Yes Provider Attestation: The documentation as recorded by the Duncan luu accurately reflects the service I personally performed and the decisions made by me, Davon Washington MD Status of Scribe Document: Viewed
[2018-11-19 15:46] LABS: ABS Basophils 0 10^3/ul (0-0.2); ABS Eosinophils 0.1 10^3/ul (0-0.6); ABS Monocytes 0.6 10^3/ul (0-0.8); ABS Nucleated RBC 0 10^3/ul; Hematocrit 47 % (42-52); Hemoglobin 15.8 g/dl (14.0-18.0); Lymphocyte % 20.9 %; Mean Corpuscular HGB Conc 34 g/dl (31-36); Mean Corpuscular Hemoglobin 31 pg (27-31); Mean Corpuscular Volume 90 fL (80-94); Mean Platelet Volume 9.4 fL (7.4-10.4); Nucleated Red Blood Cells % 0; Platelet Count 160 10^3/ul (150-450); Red Blood Count 5.16 10^6/ul (4.00-5.40); Red Cell Distribution Width 15 % (10.5-15); White Blood Count 4.8 10^3/ul (3.5-10.8)
[2018-11-19 15:56] LABS: Activated Partial Thrombo Time 30.7 seconds (26.0-36.3); INR 0.94 (0.77-1.02)
[2018-11-19 16:04] LABS: ALT 31 U/L (7-52); AST 27 U/L (13-39); Albumin 4.2 g/dL (3.2-5.2); Albumin/Globulin Ratio 1.6 (1-3); Alkaline Phosphatase 61 U/L (34-104); Anion Gap 6 mmol/L (2-11); BUN/Creatinine Ratio 13.5 (8-20); Blood Urea Nitrogen 21 mg/dL (6-24); CO2 Carbon Dioxide 27 mmol/L (22-32); Calcium 9.5 mg/dL (8.6-10.3); Chloride 102 mmol/L (101-111); Creatine Kinase 258 U/L (10-223); EGFR African American 54.1 (>60); EGFR Non-African American 44.7 (>60); Globulin 2.7 g/dL (2-4); Glucose 126 mg/dL (70-100); Magnesium 1.7 mg/dL (1.9-2.7); Potassium 3.8 mmol/L (3.5-5.0); Sodium 135 mmol/L (135-145); Total Protein 6.9 g/dL (6.4-8.9)
[2018-11-19 16:40] LABS: Alcohol < 10 mg/dL (<10)
[2018-11-19 16:56] LABS: TSH (Thyroid Stimulating Horm) 2.33 mcIU/mL (0.34-5.60)
[2018-11-19 17:16] LABS: Urine Appearance Clear; Urine Bilirubin Negative (Negative); Urine Blood Negative (Negative); Urine Color Straw; Urine Glucose Negative (Negative); Urine Ketones Negative (Negative); Urine Nitrite Negative (Negative); Urine Protein Negative (Negative); Urine Specific Gravity 1.008 (1.010-1.030); Urine Urobilinogen Negative (Negative)
[2018-11-19 17:29] LABS: Barbiturates Urine Screen None Detected (None Detect); Benzodiazepine Urine Screen None Detected (None Detect); Urine Cannabinoids Screen None Detected (None Detect)
[2018-11-19 18:22] VITALS: BP 136/86
== END | disposition home or self-care (01) ==
LOC: ED 15:03
DX: R42 Dizziness and giddiness (principal); R53.1 Weakness; R11.10 Vomiting, unspecified; Z88.2 Allergy status to sulfonamides; I10 Essential (primary) hypertension
CPT/HCPCS: 36415; 70450; 71046; 80053; 80307; 80320; 81003; 82550; 83605; 83735; 83880; 84443; 84484; 85025; 85610; 85730; 86140; 93005; 96360; 99284; G0480

== ENCOUNTER 2019-03-26 12:14 | Emergency (ER) | payer MEDICARE ==
--- NOTE | 2019-03-26 14:16 | ED ---
Lower Extremity - HPI Summary HPI Summary: This patient is a 68 y/o male who presents to [facility] with a chief complaint of right knee pain since 03/16/19. The patient said that he was kneeling down on rocks. He saw Dr. Jackson and was put on abx, he thinks amoxicillin. He then went on a camping trip and now has redness and swelling of his right knee. At triage the patient rated his pain as a 2/10 in severity. - History of Current Complaint Chief Complaint: EDExtremityLower Stated Complaint: "RT KNEE PAIN PER PT" Time Seen by Provider: 03/26/19 13:43 Hx Obtained From: Patient Mechanism Of Injury: Unknown Onset of Pain: Days, Prior to Arrival Onset/Duration: Days Severity Initially: Mild Severity Currently: Mild Pain Intensity: 2 Pain Scale Used: 0-10 Numeric Timing: Lasting Days Location: Is Discrete @ - right knee Character Of Pain: Unable To Describe Associated Signs And Symptoms: Positive: Swelling, Redness. Negative: Fever Aggravating Factor(s): Nothing Alleviating Factor(s): Nothing - Allergies/Home Medications Allergies/Adverse Reactions: Allergies Allergy/AdvReac Type Severity Reaction Status Date / Time Sulfa (Sulfonamide Allergy Nausea Verified 03/26/19 12:21 Antibiotics) PMH/Surg Hx/FS Hx/Imm Hx Endocrine/Hematology History: Reports: Hx Diabetes Denies: Hx Anticoagulant Therapy Cardiovascular History: Reports: Hx Angina, Hx Hypercholesterolemia, Hx Hypertension Denies: Hx Myocardial Infarction, Hx Pacemaker/ICD Respiratory History: Denies: Hx Asthma, Hx Chronic Obstructive Pulmonary Disease (COPD) History: Reports: Hx Renal Disease - abnormal gfr Denies: Hx Dialysis Musculoskeletal History: Reports: Hx Arthritis - RA Sensory History: Reports: Hx Contacts or Glasses Denies: Hx Hearing Aid Opthamlomology History: Reports: Hx Contacts or Glasses Psychiatric History: Denies: Hx Panic Disorder - Surgical History Surgery Procedure, Year, and Place: fusion cspine 1991 - Immunization History Date of Tetanus Vaccine: UTD Date of Influenza Vaccine: NO Infectious Disease History: No Infectious Disease History: Denies: Traveled Outside the [place] in Last 30 Days - Family History Known Family History: Positive: Cardiac Disease, Hypertension, Diabetes - Social History Alcohol Use: None Substance Use Type: Reports: None Hx Tobacco Use: No Smoking Status (MU): Never Smoked Tobacco Review of Systems Negative: Fever Positive: Other - positive: right knee pain, redness and swelling Positive: Other - positive: right knee redness All Other Systems Reviewed And Are Negative: Yes Physical Exam - Summary Physical Exam Summary: VITAL SIGNS: Reviewed. GENERAL: Patient is a well-developed and nourished MALE who is lying comfortable in the stretcher. Patient is not in any acute respiratory distress. HEAD AND FACE: No signs of trauma. No ecchymosis, hematomas or skull depressions. No sinus tenderness. EYES: PERRLA, EOMI x 2, No injected conjunctiva, no nystagmus. EARS: Hearing grossly intact. Ear canals and tympanic membranes are within normal limits. MOUTH: Oropharynx within normal limits. NECK: Supple, trachea is midline, no adenopathy, no JVD, no carotid bruit, no c- spine tenderness, neck with full ROM. CHEST: Symmetric, no tenderness at palpation. LUNGS: Clear to auscultation bilaterally. No wheezing or crackles. CVS: Regular rate and rhythm, S1 and S2 present, no murmurs or gallops appreciated. ABDOMEN: Soft, non-tender. No signs of distention. No rebound, no guarding, and no masses palpated. Bowel sounds are normal. EXTREMITIES: FROM in all major joints, cellulitis and abscess of anterior aspect of right knee NEURO: Alert and oriented x 3. No acute neurological deficits. Speech is normal and follows commands. SKIN: Dry and warm. Triage Information Reviewed: Yes Vital Signs On Initial Exam: Initial Vitals Temp Pulse Resp BP Pulse Ox 97.5 F 107 16 176/116 95 03/26/19 12:16 03/26/19 12:16 03/26/19 12:16 03/26/19 12:16 03/26/19 12:16 Vital Signs Reviewed: Yes Procedures - Incision and Drainage Right Knee Site: cleaned area with alcohol swabs, cultures sent to lab with no complications Anesthesia: Lidocaine - 1 pct Instrument(s): Scalpel - 11 blade Diagnostics - Vital Signs Vital Signs Temp Pulse Resp BP Pulse Ox 03/26/19 12:16 97.5 F 107 16 176/116 95 - Laboratory Lab Statement: Any lab studies that have been ordered have been reviewed, and results considered in the medical decision making process. - Radiology knee x-ray Radiology Interpretation Completed By: Radiologist Summary of Radiographic Findings: 1. PREPATELLAR SOFT TISSUE SWELLING. 2. PERIPHERAL ARTERIAL DISEASE. 3. NO ACUTE OSSEOUS INJURY. IF SYMPTOMS PERSIST, RECOMMEND REPEAT IMAGING. ED physician has reviewed this imaging report. Lower Extremity Course/Dx - Course Assessment/Plan: The patient seems to have a superficial cellulitis with possible a small abscess. Using sterile procedure I, I&D the abscess. See procedure note. The abscess was very superficial therefore unable to place any packing. Bacitracin was applied and the wound was dressed. Patient will continue taking Augmentin. Patient will be discharged home and he will follow- up with Dr. Jackson tomorrow that he has an appointment. Patient is hemodynamically stable alert and oriented 3 - Diagnoses Provider Diagnoses: Encounter for incision and drainage procedure, Cellulitis Discharge - Sign-Out/Discharge Documenting (check all that apply): Patient Departure - DC Patient Received Moderate/Deep Sedation with Procedure: No - Discharge Plan Condition: Stable Disposition: HOME Patient Education Materials: Cellulitis (DC) Referrals: Araeblla Jackson MD [Medical Doctor] - Ruchi Sauer MD [Primary Care Provider] - () Additional Instructions: CONTINUE WITH ANTIBIOTICS AND FOLLOW UP WITH DR. JACKSON. FOLLOW UP WITH YOUR PRIMARY CARE PROVIDER WITHIN 2-3 DAYS. RETURN TO THE ED FOR ANY WORSENING OR NEW SYMPTOMS. - Billing Disposition and Condition Condition: STABLE Disposition: Home - Attestation Statements Document Initiated by Eddi: Yes Documenting Carlibe: Charlie Mitchell Provider For Whom Eddi is Documenting (Include Credential): Davon Washington MD Scribe Attestation: Charlie Batista scribed for Davon Washington MD on 03/27/19 at 2024. Scribe Documentation Reviewed: Yes Provider Attestation: The documentation as recorded by the Charlie luu accurately reflects the service I personally performed and the decisions made by me, Davon Washington MD Status of Scribe Document: Viewed
[2019-03-26 15:09] VITALS: BP 103/64
--- NOTE | 2019-03-28 07:14 | PN ---
Progress Note - Progress Note Date of Service: 03/28/19 Note: Patient's wound culture Euceringrew serratia marcescens. Patient is currently on augmentin. Will wait for final culture for sensitivity.
--- NOTE | 2019-03-29 06:01 | PN ---
Progress Note - Progress Note Date of Service: 03/29/19 Note: Patient was placed on Augmentin which is resistant. spoke with patient and patient was placed on cipro on wednesday which is sensitive to so no further action required.
== END 2019-03-26 15:09 | disposition home or self-care (01) ==
LOC: ED 12:14
DX: L03.115 Cellulitis of right lower limb (principal); M25.561 Pain in right knee; R60.0 Localized edema; I10 Essential (primary) hypertension; E11.9 Type 2 diabetes mellitus without complications; E78.00 Pure hypercholesterolemia, unspecified; Z88.2 Allergy status to sulfonamides
CPT/HCPCS: 10060; 87070; 87077; 87186; 87205; 87640; 87641; 99282